=== PATIENT | male | born 1955 | race Caucasian/White ===

== ENCOUNTER → 2022-07-01 | Outpatient (CLI) | payer OTHER ==
[~2022-07-01] MED LIST: ALBU2.5V10 INH; ARFO15VI18 INH; COMBAER6 INH; ENAL-36 PO; LEXA1TAB PO; OMEG12002 PO; ROSU20TA5 PO; SM N; SPIR12.9 INH; ZYRTTAB8 PO
== END ==
LOC: M LABSMTC 09:13
PROVIDERS: ATTEND Anesthesiology
DX: Z01.812 Encounter for preprocedural laboratory examination (principal); Z11.52 Encounter for screening for COVID-19

== ENCOUNTER 2022-07-06 06:16 | Day surgery (SDC) | payer BC, OTHER ==
[~2022-07-06] VITALS: Ht 180.3 cm; Wt 79.4 kg
[~2022-07-06 06:16] MED LIST changes: +ceFAZolin SOD 2 GM in IV 1 EA IV ONE
[2022-07-06] MEDS ORDERED: LR 1,000 ML IV SCH (06:40)
[2022-07-06] MEDS ORDERED: BUPIVACAINE/EPIN 0.25% 30ML VIAL As Ordered ONE (07:17)
[2022-07-06] MEDS ORDERED: SUGAMMADEX SODIUM 500 MG/5 ML VIAL (BRIDION) As Ordered ONE (07:29)
[2022-07-06] MEDS ORDERED: propofoL 200 MG/20 ML VIAL As Ordered ONE (07:29)
[2022-07-06] MEDS ORDERED: KETOROLAC 60MG 2ML VIAL As Ordered ONE (07:29)
[2022-07-06] MEDS ORDERED: ROCURONIUM BROMIDE 50MG/5ML VIAL As Ordered ONE (07:29)
[2022-07-06] MEDS ORDERED: ONDANSETRON 4MG 2ML VIAL As Ordered ONE (07:29)
[2022-07-06] MEDS ORDERED: fentaNYL 100 MCG/2 ML INJECTION As Ordered ONE (07:29)
[2022-07-06] MEDS ORDERED: LIDOCAINE 2% 100MG/5ML SDV (FOR ANES.) As Ordered ONE (07:29)
[2022-07-06] MEDS ORDERED: MIDAZOLAM INJ 2MG/2ML VIAL (J2250 PER 1MG) As Ordered ONE (07:30)
[2022-07-06] MEDS ORDERED: ACETAMINOPHEN 1000MG 100ML IV BAG As Ordered ONE (08:03)
[2022-07-06] MEDS ORDERED: ONDANSETRON 4MG 2ML VIAL IV PRN (09:20)
[2022-07-06] MEDS ORDERED: fentaNYL 100 MCG/2 ML INJECTION IV PRN (09:20)
[2022-07-06] MEDS: oxyCODONE 5MG TAB PO PRN ×2 (09:41→10:11)
[2022-07-06] MEDS ORDERED: NS 1,000 ML IV SCH (09:55)
[2022-07-06 10:50] VITALS: BP 109/61
== END 2022-07-06 10:53 | disposition home or self-care (01) ==
LOC: M SDC 06:16
PROVIDERS: ATTEND Surgery
DX: K40.90 Unilateral inguinal hernia, without obstruction or gangrene, not specified as recurrent (principal); I10 Essential (primary) hypertension; E78.00 Pure hypercholesterolemia, unspecified; J44.9 Chronic obstructive pulmonary disease, unspecified; M19.90 Unspecified osteoarthritis, unspecified site; F17.210 Nicotine dependence, cigarettes, uncomplicated; Z88.8 Allergy status to other drugs, medicaments and biological substances; Z79.899 Other long term (current) drug therapy; Z79.51 Long term (current) use of inhaled steroids
CPT/HCPCS: 49651; C1781; J0131; J0690; J1100; J1885; J2250; J2405; J3010; S2900

== ENCOUNTER 2024-05-11 23:43 | Emergency (ER) | payer BC, MEDICARE ==
[~2024-05-11] VITALS: Ht 180.3 cm; Wt 80.0 kg
[~2024-05-11 23:43] MED LIST changes: -ENAL-36 PO; +ENAL1TAB50 PO; -ROSU20TA5 PO; +ROSU20TA86 PO; -ceFAZolin SOD 2 GM in IV 1 EA IV ONE
[2024-05-12] MEDS: IPRATROPIUM 0.5MG/ALBUTEROL 2.5MG INH SOL UD 3ML (DUONEB) NEB ONE (02:50)
[2024-05-12 03:45] VITALS: TEMP 97.4
[2024-05-12 06:00] VITALS: BP 144/76; O2SAT 93
== END 2024-05-12 07:05 | disposition home or self-care (01) ==
LOC: M ED 23:43 → EDBD 23:43 → M ED 05-12 07:05
DX: F10.129 Alcohol abuse with intoxication, unspecified (principal); S00.81XA Abrasion of other part of head, initial encounter; S60.812A Abrasion of left wrist, initial encounter; W01.198A Fall on same level from slipping, tripping and stumbling with subsequent striking against other object, initial encounter; M85.88 Other specified disorders of bone density and structure, other site; M47.892 Other spondylosis, cervical region; I10 Essential (primary) hypertension; E78.5 Hyperlipidemia, unspecified; Z88.8 Allergy status to other drugs, medicaments and biological substances; Z79.52 Long term (current) use of systemic steroids; Z79.899 Other long term (current) drug therapy; Y92.9 Unspecified place or not applicable; Y93.89 Activity, other specified; Y99.9 Unspecified external cause status